=== PATIENT | male | born 1950 | race Caucasian/White ===

== ENCOUNTER 2018-01-20 02:09 | Emergency (ER) | payer OTHER ==
[~2018-01-20] VITALS: Ht 175.3 cm; Wt 78.8 kg
[~2018-01-20 02:09] MED LIST: ACCUPRIL20 MG PO; ACCUPRIL40 MG PO; AUGMENTIN500 MG PO; B/P MED; PERCOCET 5/31 TABLET PO; SIMVASTATIN40 MG PO; VERAPAMIL HCL120 M1 PO
[2018-01-20 03:14] LABS: HEMOGLOBIN 14.6 G/DL (12.5-16.6); MCH 31.9 PG (29.0-34.0); MCHC 34.8 G/DL (30.0-36.0); MCV 91.9 FL (86-99); RBC DIS.WIDTH-SD 41.1 % (39-53); RED BLOOD COUNT 4.57 M/uL (4.00-5.50); WHITE BLOOD COUNT 13.9 K/uL (4.1-10.2)
[2018-01-20 03:23] LABS: ALBUMIN 4.4 g/dL (3.2-4.8); CHLORIDE 106 mEq/L (99-109); POTASSIUM 4.1 mEq/L (3.7-5.4); SODIUM 139 mEq/L (136-147)
[2018-01-20 03:26] LABS: GLUCOSE 164 mg/dL (70-99)
[2018-01-20 03:28] LABS: TOTAL BILIRUBIN 0.4 mg/dL (0.0-1.0)
[2018-01-20 03:29] LABS: ALKALINE PHOSPHATASE 93 IU/L (3-129); CREATININE 1.2 mg/dL (0.6-1.3); GFR ESTIMATE (CALCULATED) > 59 mL/min/ (58.99-99999)
[2018-01-20 03:30] LABS: UREA NITROGEN (BUN) 14 mg/dL (9-23)
[2018-01-20 03:31] LABS: AST (GOT) 22 IU/L (2-34)
[2018-01-20 03:32] LABS: ALT (GPT) 27 IU/L (3-49)
[2018-01-20 03:58] LABS: LIPASE 33 U/L (1.0-51.0)
[2018-01-20 04:01] LABS: TROP-I INTERPRETATION NEGATIVE; TROPONIN-I 0.03 ng/mL (0.0-0.30)
[2018-01-20 04:07] LABS: PLAT.SUFFICIENCY ADEQUATE; PLATELET COUNT 173 K/uL (156-360)
[2018-01-20 05:50] LABS: APPEARANCE CLEAR ((CLEAR)); BILIRUBIN NEGATIVE; BLOOD NEGATIVE; COLOR YELLOW ((YELLOW)); GLUCOSE (STRIP) NEGATIVE; KETONES NEGATIVE; LEUKOCYTES NEGATIVE; NITRITE NEGATIVE; PROTEIN (STRIP) NEGATIVE; UCUL ADDED? NO; UROBILINOGEN 0.2 MG/DL (0.2-1.0)
[2018-01-20 05:52] LABS: SPECIFIC GRAVITY > 1.060 (1.000-1.030)
[2018-01-20 07:10] VITALS: BP 151/57
[2018-01-20] MEDS ORDERED: LIPITOR40 MG PO (16:20)
[2018-01-20] MEDS ORDERED: MEN'S MULTI-VI1 EACH PO (16:20)
[2018-01-20] MEDS ORDERED: MOTRIN600 MG PO (16:21)
== END 2018-01-20 07:13 | disposition home or self-care (01) ==
LOC: EME 02:09
DX: K80.50 Calculus of bile duct without cholangitis or cholecystitis without obstruction (principal); K57.30 Diverticulosis of large intestine without perforation or abscess without bleeding; N28.1 Cyst of kidney, acquired; I71.4 Abdominal aortic aneurysm, without rupture; E78.5 Hyperlipidemia, unspecified; I10 Essential (primary) hypertension; Z87.891 Personal history of nicotine dependence
CPT/HCPCS: 74177; 76705; 80053; 81003; 83690; 84484; 85027; 93005; 99281; 99284; J2405; J3010; J7030

== ENCOUNTER 2018-01-20 11:05 | Day surgery (SDC) | payer OTHER ==
[~2018-01-20] VITALS: Ht 175.3 cm; Wt 79.6 kg
[2018-01-20 11:44] LABS: HEMATOCRIT 40.3 % (38.0-50.0); HEMOGLOBIN 13.9 G/DL (12.5-16.6); MCH 31.7 PG (29.0-34.0); MCHC 34.5 G/DL (30.0-36.0); PLATELET COUNT 172 K/uL (156-360); RBC DIS.WIDTH-CV 12.1 % (11.8-14.6); RBC DIS.WIDTH-SD 41.3 % (39-53); RED BLOOD COUNT 4.38 M/uL (4.00-5.50); WHITE BLOOD COUNT 21.5 K/uL (4.1-10.2)
[2018-01-20 11:55] LABS: ALBUMIN 4.2 g/dL (3.2-4.8)
[2018-01-20 11:56] LABS: CHLORIDE 104 mEq/L (99-109); POTASSIUM 3.9 mEq/L (3.7-5.4); SODIUM 139 mEq/L (136-147)
[2018-01-20 11:58] LABS: TOTAL PROTEIN 6.7 g/dL (6.4-8.3)
[2018-01-20 12:02] LABS: CREATININE 1.1 mg/dL (0.6-1.3); GFR ESTIMATE (CALCULATED) > 59 mL/min/ (58.99-99999)
[2018-01-20 12:03] LABS: AST (GOT) 19 IU/L (2-34); UREA NITROGEN (BUN) 11 mg/dL (9-23)
[2018-01-20 12:07] LABS: ALKALINE PHOSPHATASE 86 IU/L (3-129); GLUCOSE 114 mg/dL (70-99); TOTAL BILIRUBIN 0.7 mg/dL (0.0-1.0)
[2018-01-20 12:10] LABS: ALT (GPT) 24 IU/L (3-49)
[2018-01-20 13:02] LABS: APPEARANCE CLEAR ((CLEAR)); BILIRUBIN NEGATIVE; BLOOD SMALL; COLOR YELLOW ((YELLOW)); GLUCOSE (STRIP) NEGATIVE; KETONES NEGATIVE; LEUKOCYTES TRACE; NITRITE NEGATIVE; PROTEIN (STRIP) NEGATIVE; SPECIFIC GRAVITY 1.029 (1.000-1.030); UROBILINOGEN 0.2 MG/DL (0.2-1.0)
[2018-01-20 13:05] LABS: BACTERIA NONE SEEN /HPF; EPITHELIAL CELLS NONE SEEN /HPF; MUCUS NONE SEEN /LPF; RED BLOOD CELLS 0-5 /HPF (0-5); UCUL ADDED? NO; WHITE BLOOD CELLS 0-5 /HPF (0-5)
[2018-01-20 14:08] LABS: LIPASE 20 U/L (1.0-51.0)
[2018-01-20 14:15] LABS: TROP-I INTERPRETATION NEGATIVE; TROPONIN-I 0.04 ng/mL (0.0-0.30)
[2018-01-20] MEDS ORDERED: LIPITOR40 MG PO (16:20)
[2018-01-20] MEDS ORDERED: MEN'S MULTI-VI1 EACH PO (16:20)
[2018-01-20] MEDS ORDERED: MOTRIN600 MG PO (16:21)
[2018-01-20 22:20] VITALS: BP 137/71
[2018-01-21 06:58] VITALS: BP 131/59
[2018-01-21 08:34] LABS: BASOPHIL (%) 0.1 % (0-1); EOSINOPHIL (%) 0 % (0-5); HEMATOCRIT 38.1 % (38.0-50.0); HEMOGLOBIN 12.6 G/DL (12.5-16.6); IMMATURE GRANULOCYTE (%) 0.6 % (0.0-0.7); LYMPHOCYTE (%) 5.8 % (15-42); MCH 30.9 PG (29.0-34.0); MCHC 33.1 G/DL (30.0-36.0); MCV 93.4 FL (86-99); MONOCYTE (%) 4.1 % (3-12); MONOCYTE COUNT 0.7 K/uL (0-0.8); NEUTROPHIL (%) 89.4 % (45-76); NEUTROPHIL COUNT 15.7 K/uL (1.8-6.4); PLATELET COUNT 145 K/uL (156-360); RBC DIS.WIDTH-CV 12.3 % (11.8-14.6); RBC DIS.WIDTH-SD 42.5 % (39-53); RED BLOOD COUNT 4.08 M/uL (4.00-5.50); WHITE BLOOD COUNT 17.5 K/uL (4.1-10.2)
[2018-01-21 17:59] VITALS: BP 142/71
[2018-01-21 19:27] VITALS: BP 149/68
[2018-01-21 23:42] VITALS: BP 135/68
[2018-01-22 03:42] VITALS: BP 150/67
[2018-01-22 06:39] LABS: BASOPHIL (%) 0.2 % (0-1); EOSINOPHIL (%) 0.1 % (0-5); HEMATOCRIT 33.3 % (38.0-50.0); IMMATURE GRANULOCYTE (%) 0.6 % (0.0-0.7); LYMPHOCYTE (%) 11.3 % (15-42); LYMPHOCYTE COUNT 1.6 K/uL (1.0-2.8); MCV 93.8 FL (86-99); MONOCYTE (%) 7.8 % (3-12); MONOCYTE COUNT 1.1 K/uL (0-0.8); NEUTROPHIL COUNT 11.4 K/uL (1.8-6.4); PLATELET COUNT 133 K/uL (156-360); RBC DIS.WIDTH-CV 12.4 % (11.8-14.6); RBC DIS.WIDTH-SD 43.4 % (39-53); RED BLOOD COUNT 3.55 M/uL (4.00-5.50); WHITE BLOOD COUNT 14.2 K/uL (4.1-10.2)
[2018-01-22 07:44] VITALS: BP 133/64
[2018-01-22] MEDS ORDERED: SENNA-DOCUSATE1 EAC1 PO (08:18)
[2018-01-22] MEDS ORDERED: NORCO 5/3251 TABLET PO (08:18)
[2018-01-22 11:23] VITALS: BP 139/73
[2018-01-22] MEDS ORDERED: SPACE CHAMBER1 EACH MC (14:43)
[2018-01-22] MEDS ORDERED: PROAIR HFA8.5 GM IH (14:43)
[2018-01-22 15:21] VITALS: BP 174/81
[2018-01-22 23:56] VITALS: BP 130/63
[2018-01-23 07:55] VITALS: BP 170/91
[2018-01-23 09:10] VITALS: BP 148/79
[2018-01-23] MEDS ORDERED: PREDNISONE10 MG PO (12:00)
[2018-01-23 12:27] VITALS: BP 138/81
[2018-01-23] MEDS ORDERED: FLOMAX0.4 MG PO (12:29)
[2018-01-23] MEDS ORDERED: LEVAQUIN500 MG PO (14:26)
[2018-01-23 16:05] VITALS: BP 151/71
== END 2018-01-23 18:30 | disposition home or self-care (01) ==
LOC: EME 11:05 → SDC 19:24 → ENRESERV 20:59 → 2SOUTH 21:04 → 2EASTP 21:04 → 2SOUTH 21:04 → 2EASTP 22:22
PROVIDERS: Physician Assistant
PROC: 0FT44ZZ Resection of Gallbladder, Percutaneous Endoscopic Approach (ICD-10-PCS; principal; 2018-01-20)
DX: K81.0 Acute cholecystitis (principal); J44.1 Chronic obstructive pulmonary disease with (acute) exacerbation; R09.02 Hypoxemia; R94.31 Abnormal electrocardiogram [ECG] [EKG]; R39.14 Feeling of incomplete bladder emptying; I71.4 Abdominal aortic aneurysm, without rupture; I10 Essential (primary) hypertension; E78.5 Hyperlipidemia, unspecified; Z87.891 Personal history of nicotine dependence
CPT/HCPCS: 71046; 71275; 80053; 81003; 83605; 83690; 84484; 85025; 85027; 87040; 88304; 93005; 94640; 94640 76; 94667; 94668; 94760; 94799; 99202; 99281; 99285; G0378; J0131; J0696; J1100; J1885; J2250; J2405; J3010; J7030; J7120; J7512; S0030; S0074

== ENCOUNTER 2018-02-17 17:35 | Emergency (ER) | payer OTHER ==
[~2018-02-17] VITALS: Ht 175.3 cm; Wt 75.6 kg
[~2018-02-17 17:35] MED LIST changes: +FLOMAX0.4 MG PO; +LEVAQUIN500 MG PO; +LIPITOR40 MG PO; +MEN'S MULTI-VI1 EACH PO; +MOTRIN600 MG PO; +NORCO 5/3251 TABLET PO; +PREDNISONE10 MG PO; +PROAIR HFA8.5 GM IH; +SENNA-DOCUSATE1 EAC1 PO; +SPACE CHAMBER1 EACH MC
[2018-02-17 18:25] LABS: APPEARANCE CLEAR ((CLEAR)); BILIRUBIN NEGATIVE; BLOOD MODERATE; COLOR YELLOW ((YELLOW)); GLUCOSE (STRIP) NEGATIVE; KETONES NEGATIVE; LEUKOCYTES LARGE; NITRITE POSITIVE; PROTEIN (STRIP) NEGATIVE; SPECIFIC GRAVITY 1.011 (1.000-1.030); UROBILINOGEN 0.2 MG/DL (0.2-1.0)
[2018-02-17 18:33] LABS: BACTERIA RARE /HPF; EPITHELIAL CELLS RARE /HPF; MUCUS TRACE /LPF; UCUL ADDED? YES; WHITE BLOOD CELLS TNTC /HPF (0-5)
[2018-02-17 18:35] LABS: ALBUMIN 4.2 g/dL (3.2-4.8); CHLORIDE 107 mEq/L (99-109); POTASSIUM 3.8 mEq/L (3.7-5.4); SODIUM 141 mEq/L (136-147)
[2018-02-17 18:37] LABS: GLUCOSE 104 mg/dL (70-99)
[2018-02-17 18:38] LABS: TOTAL PROTEIN 7.1 g/dL (6.4-8.3)
[2018-02-17 18:39] LABS: HEMATOCRIT 41.1 % (38.0-50.0); MCH 31.5 PG (29.0-34.0); MCHC 35.3 G/DL (30.0-36.0); RBC DIS.WIDTH-CV 12.4 % (11.8-14.6); TOTAL BILIRUBIN 0.7 mg/dL (0.0-1.0); WHITE BLOOD COUNT 26.5 K/uL (4.1-10.2)
[2018-02-17 18:41] LABS: ALKALINE PHOSPHATASE 100 IU/L (3-129); CREATININE 1.1 mg/dL (0.6-1.3); GFR ESTIMATE (CALCULATED) > 59 mL/min/ (58.99-99999)
[2018-02-17 18:42] LABS: UREA NITROGEN (BUN) 10 mg/dL (9-23)
[2018-02-17 18:43] LABS: AST (GOT) 22 IU/L (2-34)
[2018-02-17 18:44] LABS: ALT (GPT) 26 IU/L (3-49)
[2018-02-17 18:47] LABS: TROP-I INTERPRETATION NEGATIVE; TROPONIN-I 0.02 ng/mL (0.0-0.30)
[2018-02-17 18:49] LABS: HEMOGLOBIN 14.5 G/DL (12.5-16.6); MCV 89.2 FL (86-99); RED BLOOD COUNT 4.61 M/uL (4.00-5.50)
[2018-02-17 19:19] LABS: PLAT.SUFFICIENCY ADEQUATE; PLATELET COUNT 218 K/uL (156-360)
[2018-02-17] MEDS ORDERED: CIPRO500 MG PO (19:45)
[2018-02-17 20:35] VITALS: BP 121/77
== END 2018-02-17 20:35 | disposition home or self-care (01) ==
LOC: EME 17:35 → RME 17:35
PROVIDERS: Nurse Practitioner Family
DX: N39.0 Urinary tract infection, site not specified (principal); I10 Essential (primary) hypertension; E78.5 Hyperlipidemia, unspecified; Z87.891 Personal history of nicotine dependence; Z87.442 Personal history of urinary calculi; Z90.49 Acquired absence of other specified parts of digestive tract
CPT/HCPCS: 71046; 80053; 81003; 84484; 85027; 87077; 87086; 87186; 93005; 99281; 99285